=== PATIENT | female | born 1950 | race African-American/Black ===

== ENCOUNTER 2019-01-25 10:21 | Inpatient (IN) | payer OTHER, BC | END 2019-02-06 20:01 | disposition home or self-care (01) | LOC: TELE-CENTR 01-27 17:36 → ER 10:21 → TELE 13:26 → TELE-CENTR 18:20 | DX: G93.41 Metabolic encephalopathy (principal); I63.9 Cerebral infarction, unspecified; J15.0 Pneumonia due to Klebsiella pneumoniae; N17.0 Acute kidney failure with tubular necrosis; N39.0 Urinary tract infection, site not specified; I13.0 Hypertensive heart and chronic kidney disease with heart failure and stage 1 through stage 4 chronic kidney disease, or unspecified chronic kidney disease; E87.0 Hyperosmolality and hypernatremia; J44.0 Chronic obstructive pulmonary disease with (acute) lower respiratory infection; N18.9 Chronic kidney disease, unspecified; E11.22 Type 2 diabetes mellitus with diabetic chronic kidney disease; E86.0 Dehydration; I25.10 Atherosclerotic heart disease of native coronary artery without angina pectoris; F01.50 Vascular dementia, unspecified severity, without behavioral disturbance, psychotic disturbance, mood disturbance, and anxiety; E11.21 Type 2 diabetes mellitus with diabetic nephropathy; Z86.73 Personal history of transient ischemic attack (TIA), and cerebral infarction without residual deficits ==